=== PATIENT | female | born 1950 | race Caucasian/White ===

== ENCOUNTER → 2016-11-14 | Outpatient (CLI) | payer MEDICARE ==
--- NOTE | 2016-11-14 13:22 | MM ---
Reason for exam: screening (asymptomatic). Last mammogram was performed 1 year and 1 month ago. History: Patient is postmenopausal and is nulliparous. Family history of breast cancer in mother at age 80. Took unspecified hormones for 10 years beginning at age 44. Physical Findings: A clinical breast exam by your physician is recommended on an annual basis and results should be correlated with mammographic findings. MG 3D Screening Mammo W/Cad Bilateral CC and MLO view(s) were taken. Prior study comparison: October 24, 2015, bilateral MG screening mammo w CAD. October 18, 2014, bilateral MG screening mammo w CAD. October 02, 2013, bilateral digital screening mammo w/CAD. The breast tissue is heterogeneously dense. This may lower the sensitivity of mammography. There is no discrete abnormality. ASSESSMENT: Negative, BI-RAD 1 RECOMMENDATION: Routine screening mammogram of both breasts in 1 year.
== END | disposition home or self-care (01) ==
LOC: RADMAMWWP 10:35
PROVIDERS: ATTEND Obstetrics & Gynecology
DX: Z12.31 Encounter for screening mammogram for malignant neoplasm of breast (principal)
CPT/HCPCS: 77063; G0202

== ENCOUNTER → 2017-11-26 | Outpatient (CLI) | payer MEDICARE ==
--- NOTE | 2017-11-27 10:42 | MM ---
Reason for exam: screening (asymptomatic). Last mammogram was performed 1 year ago. History: Patient is postmenopausal and is nulliparous. Family history of breast cancer in mother at age 80. Took unspecified hormones for 10 years beginning at age 44. Physical Findings: A clinical breast exam by your physician is recommended on an annual basis and results should be correlated with mammographic findings. MG 3D Screening Mammo W/Cad Bilateral CC and MLO view(s) were taken. Prior study comparison: November 14, 2016, bilateral MG 3d screening mammo w/cad. October 24, 2015, bilateral MG screening mammo w CAD. The breast tissue is heterogeneously dense. This may lower the sensitivity of mammography. Focal asymmetry left MLO view 2.8cm from nipple. This finding is changed when compared with previous exams. ASSESSMENT: Incomplete: need additional imaging evaluation, BI-RAD 0 RECOMMENDATION: Special view mammogram of the left breast. If lesion persists on supplemental views, image directed ultrasound is recommended. [facility] will attempt to contact patient to return for supplemental views and ultrasound if indicated.
== END | disposition home or self-care (01) ==
LOC: RADMAMWWP 12:20
PROVIDERS: ATTEND Family Medicine
DX: Z12.31 Encounter for screening mammogram for malignant neoplasm of breast (principal)
CPT/HCPCS: 77063; 77067

== ENCOUNTER → 2017-12-04 | Outpatient (CLI) | payer MEDICARE ==
--- NOTE | 2017-12-04 12:06 | MM ---
Reason for exam: additional evaluation requested from abnormal screening. Last mammogram was performed less than 1 month ago. History: Patient is postmenopausal and is nulliparous. Family history of breast cancer in mother at age 80. Took unspecified hormones for 10 years beginning at age 44. Physical Findings: Nurse did not find any significant physical abnormalities on exam. MG Work Up Mamm w CAD LT LM and spot compression MLO view(s) were taken of the left breast. Prior study comparison: November 26, 2017, bilateral MG 3d screening mammo w/cad. November 14, 2016, bilateral MG 3d screening mammo w/cad. The breast tissue is heterogeneously dense. This may lower the sensitivity of mammography. Inferior left asymmetry persist on spot compression MLO with possible correlate inferiorly. However it does appear similar to priors. These results were verbally communicated with the patient and result sheet given to the patient on 12/04/17. ASSESSMENT: Incomplete: need additional imaging evaluation, BI-RAD 0 RECOMMENDATION: Ultrasound of the left breast. (lower inner quadrant, if nothing seen, lower outer quadrant)
--- NOTE | 2017-12-04 12:08 | USB ---
Reason for exam: additional evaluation requested from abnormal screening. History: Patient is postmenopausal and is nulliparous. Family history of breast cancer in mother at age 80. Took unspecified hormones for 10 years beginning at age 44. US Breast Workup Limited LT Left limited breast ultrasound including focal area of concern, retroareolar and axilla demonstrates no cystic or solid lesion seen. No suspicious sonographic finding. These results were verbally communicated with the patient and result sheet given to the patient on 12/04/17. ASSESSMENT: Negative, BI-RAD 1 RECOMMENDATION: Return to routine screening mammogram schedule for both breasts.
== END | disposition home or self-care (01) ==
LOC: RADMAMWWP 09:57
PROVIDERS: ATTEND Family Medicine
DX: R92.8 Other abnormal and inconclusive findings on diagnostic imaging of breast (principal)
CPT/HCPCS: 77065

== ENCOUNTER 2018-02-02 21:15 | Emergency (ER) | payer MEDICARE ==
[2018-02-02 22:02] VITALS: TEMP 99.7
--- NOTE | 2018-02-02 23:02 | ED ---
Fall HPI - General Chief Complaint: Fall Stated Complaint: Fall/Hand Pain Time Seen by Provider: 02/02/18 22:46 Source: patient, RN notes reviewed Mode of arrival: ambulatory Limitations: no limitations - History of Present Illness Initial Comments: This is a 67-year-old female who presents to the emergency department with chief complaint of left wrist injury. Patient states that she was coming down from a 12 foot ladder and missed the last 2 rungs. She states that she fell back and landed onto her left wrist. Patient reports pain to the radial aspect of the wrist. She states that she does have osteoporosis and has broken her foot in the past. Patient states that she does have limited range of motion of the left wrist due to pain. She denies any other injuries or trauma. Denies hitting her head at. Denies head, neck or back pain. Denies recent illnesses or infections. Denies fevers or chills, chest pain or shortness of breath, abdominal pain, nausea or vomiting, numbness or tingling. - Related Data Home Medications Medication Instructions Recorded Confirmed Alendronate Sodium 70 mg PO Q7DAYS 11/30/13 12/02/13 Levothyroxine Sodium [Synthroid] 75 mcg PO DAILY 11/30/13 12/02/13 Multivitamin [Multivitamins] 1 each PO 11/30/13 11/30/13 Oxybutynin Chloride [Ditropan XL] 5 mg PO DAILY 11/30/13 12/02/13 amLODIPine BESYLATE/BENAZEPRIL 1 each PO DAILY 11/30/13 12/02/13 [Amlodipine-Benazepril 10-20 mg] Allergies Allergy/AdvReac Type Severity Reaction Status Date / Time aspirin Allergy Unknown Verified 02/02/18 22:02 Penicillins Allergy Rash/Hives Verified 02/02/18 22:02 sulfamethoxazole Allergy Unknown Verified 02/02/18 22:02 [From Bactrim] trimethoprim [From Bactrim] Allergy Unknown Verified 02/02/18 22:02 Review of Systems ROS Statement: Those systems with pertinent positive or pertinent negative responses have been documented in the HPI. ROS Other: All systems not noted in ROS Statement are negative. Past Medical History Past Medical History: Hypertension, Thyroid Disorder Additional Past Medical History / Comment(s): osteoporosis,hemmoriods, hypothyroid History of Any Multi-Drug Resistant Organisms: None Reported Additional Past Surgical History / Comment(s): colonoscopy Past Anesthesia/Blood Transfusion Reactions: No Reported Reaction Past Psychological History: No Psychological Hx Reported Smoking Status: Never smoker Past Alcohol Use History: None Reported Past Drug Use History: None Reported General Exam - General Exam Comments Initial Comments: General: Awake and alert, well-developed; in no apparent distress. HEENT: Head atraumatic, normocephalic. Pupils are equal, round and reactive to light. Extraocular movements intact. Oropharynx moist without erythema or exudate. Neck: Supple. Normal ROM. Cardiovascular: Regular rate and rhythm. No murmurs, rubs or gallops. Chest symmetrical. Respiratory: Lungs clear to auscultation bilaterally. No wheezes, rales or rhonchi. Normal respiratory effort with no use of accessory muscles. Musculoskeletal: Limited active range of motion of the left wrist due to pain. Passive range of motion is intact. There is generalized soft tissue swelling to the left wrist. Tenderness on palpation of the radial aspect of the wrist. No gross deformities. Sensation is intact. Radial pulses are 2+ equal and palpable bilaterally. Skin: [place], warm and dry without rashes or lesions. Neurological: Alert and oriented x3. CN II-XII grossly intact. Speech is fluent and answers are appropriate. No focal neuro deficits. Psychiatric: Normal mood and affect. No overt signs of depression or anxiety noted. Limitations: no limitations Course Vital Signs 02/02/18 21:56 Temperature 99.7 F H Pulse Rate 87 Respiratory 18 Rate Blood Pressure 153/83 O2 Sat by Pulse 98 Oximetry Procedures - Orthopedic Splinting/Casting Injury #1 Side: left Upper Extremity Injury Location: wrist Upper Extremity Immobilizer: thumb spica, synthetic pre-padded splint Medical Decision Making - Medical Decision Making This is a 67-year-old female who presents to the emergency department with chief complaint of left wrist injury. Patient missed the last couple of rungs on a ladder and landed onto her left wrist. X-rays of the left wrist and hand revealed no acute fractures or dislocations. Patient does have a mild snuffbox tenderness on exam. Tenderness is to the radial aspect of the left wrist. Thumb spica splint is placed and patient tolerated well without complication. She is neurovascularly intact. Patient will be provided with follow-up information to orthopedics. Vital signs are stable and patient is in no acute distress. She will be discharged home at this time. She is in agreement with plan and voices understanding. All questions were answered. - Radiology Data Radiology results: report reviewed X-ray left wrist impression: Negative left wrist exam. X-ray left hand impression: Minimal osteoarthritic changes. No fracture seen. Disposition Clinical Impression: Left wrist injury Disposition: HOME SELF-CARE Condition: Good Instructions: Wrist Sprain (ED) Additional Instructions: Please follow-up with Dr. Kenny, orthopedics within 1-2 days. Please keep splint clean, dry and intact. Please follow up with primary care provider within 1-2 days. Return to emergency department if symptoms should worsen or any concerns arise. Is patient prescribed a controlled substance at d/c from ED?: No Referrals: Juan Kwong DO [Primary Care Provider] - 1-2 days Kyle Kenny MD [STAFF PHYSICIAN] - 1-2 days Time of Disposition: 00:09
--- NOTE | 2018-02-02 23:31 | XR ---
EXAMINATION TYPE: XR hand complete LT DATE OF EXAM: 02/02/2018 COMPARISON: NONE HISTORY: Right hand pain TECHNIQUE: 3 views FINDINGS: I see no fracture nor dislocation. There is mild spurring at the IP joints. There are no er osions. There is no subluxation. IMPRESSION: Minimal osteoarthritic changes. No fracture seen.
--- NOTE | 2018-02-02 23:32 | XR ---
EXAMINATION TYPE: XR wrist complete LT DATE OF EXAM: 02/02/2018 COMPARISON: NONE HISTORY: Wrist pain after falling TECHNIQUE: 4 views FINDINGS: I see no fracture nor dislocation. Joint spaces are fairly normal. Scaphoid is intact. Draper carpals are intact. IMPRESSION: Negative left wrist exam.
[2018-02-03 00:17] VITALS: BP 168/86; PULSE 90; RESP 19
== END 2018-02-03 00:15 | disposition home or self-care (01) ==
LOC: EC 21:15
DX: S69.92XA Unspecified injury of left wrist, hand and finger(s), initial encounter (principal); I10 Essential (primary) hypertension; E03.9 Hypothyroidism, unspecified; Z79.899 Other long term (current) drug therapy; Z88.0 Allergy status to penicillin; Z88.2 Allergy status to sulfonamides; Z88.6 Allergy status to analgesic agent; W11.XXXA Fall on and from ladder, initial encounter; Y92.009 Unspecified place in unspecified non-institutional (private) residence as the place of occurrence of the external cause
CPT/HCPCS: 29125; 99283

== ENCOUNTER → 2018-11-28 | Outpatient (CLI) | payer MEDICARE ==
--- NOTE | 2018-11-28 15:02 | MM ---
Reason for exam: screening (asymptomatic). Last mammogram was performed 1 year ago. History: Patient is postmenopausal and is nulliparous. Family history of breast cancer in mother at age 80. Took unspecified hormones for 10 years beginning at age 44. Physical Findings: A clinical breast exam by your physician is recommended on an annual basis and results should be correlated with mammographic findings. MG 3D Screening Mammo W/Cad Bilateral CC and MLO view(s) were taken. Prior study comparison: December 04, 2017, left breast MG work up mamm w CAD LT. November 26, 2017, bilateral MG 3d screening mammo w/cad. The breast tissue is heterogeneously dense. This may lower the sensitivity of mammography. There is no discrete abnormality. ASSESSMENT: Negative, BI-RAD 1 RECOMMENDATION: Routine screening mammogram of both breasts in 1 year.
== END | disposition home or self-care (01) ==
LOC: RADMAMWWP 11:04
PROVIDERS: ATTEND Family Medicine
DX: Z12.31 Encounter for screening mammogram for malignant neoplasm of breast (principal)
CPT/HCPCS: 77063; 77067

== ENCOUNTER → 2019-01-26 | Outpatient (CLI) | payer MEDICARE ==
--- NOTE | 2019-01-26 13:48 | BD ---
EXAMINATION TYPE: Axial Bone Density DATE OF EXAM: 01/26/2019 COMPARISON: 2011 CLINICAL HISTORY: M [age] Height: 60 inches Weight: 120 pounds FRAX RISK QUESTIONS: Alcohol (3 or more units per day): no Family History (Parent hip fracture): unsure Glucocorticoids (More than 3mos): no (Ex: prednisone, prednisolone, methylprednisolone, dexamethasone, and hydrocortisone). History of Fracture in Adulthood: yes, foot Secondary Osteoporosis: 1. Type 1 Diabetes: no 2. Hyperthyroidism: unsure 3. Menopause before 45: no 4. Malnutrition: no 5. Chronic liver disease: no Rheumatoid Arthritis: no Current Tobacco Use: no RISK FACTORS HISTORY OF: Family History of Osteoporosis: yes, sister Active: yes Diet low in dairy products/other sources of calcium: no Postmenopausal woman: yes Take estrogen and/or progesterone medications: not now How long: "other" age [age] as stated on mammography MRS form Lost more than 2 inches in height since high school: no Frequent falls: no Poor Health: no Hyperparathyroidism: no Adrenal Insufficiency: no MEDICATIONS: Prednisone or other steroids: no Thyroid Medications: yes Which medication: Levothyroxine How Long: over 20 years Osteoporosis Medications: yes Which medication: currently alendronate sodium...previously Actonel How Long: over 10 years Additional Medications: blood pressure med , Vitamin D 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 System. Bone mineral density as measured about the Lumbar spine is: ----- L1-L4(G/cm2): 1.023 T Score Values are as follows: ----- L2: -0.7 ----- L3: -0.5 ----- L4: -2.3 ----- L1-L4: -1.3 Bone mineral density has: Increased 1.4% since study of: 04/21/2012 Bone mineral density about the R hip (g/cm2): 0.784 Bone mineral density about the L hip (g/cm2): 0.816 T Score values are as follows: -----R Neck: -1.8 -----L Neck: -1.6 -----R Total: -1.2 -----L Total: -0.8 Bone mineral density has: Decreased -1.0% since study of: 04/21/2012 IMPRESSION: Osteopenia (T Score between -2.5 and -1). There is slightly increased risk of fracture and the patient may be considered for treatment. Re-Screen 2-5 years. NOTE: T-SCORE=SD OF THE YOUNG ADULT MEAN.
== END | disposition home or self-care (01) ==
LOC: RADBDWWP 10:53
PROVIDERS: ATTEND Family Medicine
DX: M85.80 Other specified disorders of bone density and structure, unspecified site (principal); Z79.83 Long term (current) use of bisphosphonates
CPT/HCPCS: 77080

== ENCOUNTER → 2019-07-17 | Outpatient (CLI) | payer MEDICARE ==
--- NOTE | 2019-07-18 10:53 | XR ---
2 view abdomen HISTORY: Pain and diarrhea, loss of appetite 2 views the abdomen No comparisons Lung bases are clear. There is no evident bowel obstruction or pneumoperitoneum. No pathologic calcif ication is evident, suspect vascular calcifications within the pelvis. Bone mineralization is normal, degenerative disc changes are present in the visualized spine. IMPRESSION: Nonspecific bowel gas pattern
== END | disposition home or self-care (01) ==
LOC: RADXRYALE 15:03
PROVIDERS: ATTEND Family Medicine
DX: R10.817 Generalized abdominal tenderness (principal); R19.7 Diarrhea, unspecified
CPT/HCPCS: 74019

== ENCOUNTER → 2020-01-28 | Outpatient (CLI) | payer MEDICARE ==
--- NOTE | 2020-01-29 09:41 | MM ---
Reason for exam: screening (asymptomatic). Last mammogram was performed 1 year and 2 months ago. History: Patient is postmenopausal and is nulliparous. Family history of breast cancer in mother at age 80. Took unspecified hormones for 10 years beginning at age 44. Physical Findings: A clinical breast exam by your physician is recommended on an annual basis and results should be correlated with mammographic findings. MG 3D Screening Mammo W/Cad Bilateral CC and MLO view(s) were taken. Prior study comparison: November 28, 2018, bilateral MG 3d screening mammo w/cad. December 04, 2017, left breast MG work up mamm w CAD LT. The breast tissue is heterogeneously dense. This may lower the sensitivity of mammography. No significant changes when compared with prior studies. ASSESSMENT: Negative, BI-RAD 1 RECOMMENDATION: Routine screening mammogram of both breasts in 1 year.
== END | disposition home or self-care (01) ==
LOC: RADMAMWWP 14:43
PROVIDERS: ATTEND Family Medicine
DX: Z12.31 Encounter for screening mammogram for malignant neoplasm of breast (principal)
CPT/HCPCS: 77063; 77067

== ENCOUNTER 2020-10-04 09:23 | Day surgery (SDC) | payer MEDICARE ==
[2020-09-29 16:10] VITALS: BMI 23.4
[~2020-10-04 09:23] MED LIST: LACTATED RINGERS 1,000 ML IV SCH; LIDOCAINE 1% (10MG/ML) FOR IV START INTRADERMA PRN
[2020-10-04 10:05] VITALS: TEMP 97.8
[2020-10-04] MEDS ORDERED: LACTATED RINGERS 1,000 ML IV ONE (10:05)
[2020-10-04] MEDS ORDERED: LIDOCAINE 1% (10MG/ML) FOR IV START INTRADERMA ONE (10:18)
[2020-10-04] MEDS ORDERED: LIDOCAINE 1% INJ 10MG/ML (20 ML MDV) ONE (10:40)
[2020-10-04] MEDS ORDERED: PROPOFOL 10 MG/ML 20 ML VIAL IV ONE (10:40)
[2020-10-04] MEDS ORDERED: fentaNYL (PF) 50 MCG/ML 2 ML AMP ONE (10:40)
--- NOTE | 2020-10-04 11:15 | P.PCN ---
Date of Procedure: 10/04/20 Description of Procedure: BRIEF HISTORY: Patient is a 69-year-old female presenting for outpatient colonoscopy for evaluation of other fecal abnormalities, blood per rectum. The patient reports last colonoscopy approximately 10 years ago. No abdominal pain. No family history of colon cancer. PROCEDURE PERFORMED: Colonoscopy. PREOPERATIVE DIAGNOSIS: Other fecal abnormalities, blood per rectum, patient reports last colonoscopy 10 years ago. ESTIMATED BLOOD LOSS: Minimal. IV sedation per Anesthesia. PROCEDURE: After informed consent was obtained, the patient, was brought into the endoscopy unit. IV sedation was administered by Anesthesia under continuous monitoring. Digital rectal examination was normal. Initially the Olympus pediatric flexible video colonoscope was then inserted in the rectum, gradually advanced into the cecum without any difficulty. Careful examination was performed as the scope was gradually being withdrawn. Ileocecal valve and the appendiceal orifice were visualized and appeared normal. Prep was excellent. Mucosa of the cecum, ascending colon, transverse colon, descending colon, sigmoid colon, and rectum appeared normal, except for a few scattered diverticula in the sigmoid colon. Retroflexion was performed in the rectum and no lesions were seen, low-grade internal hemorrhoids noted. The patient tolerated the procedure well. IMPRESSION: Mild sigmoid diverticulosis. Low-grade internal hemorrhoids. RECOMMENDATIONS: Findings of this examination were discussed with the patient and her family. Okay to resume diet. Okay to resume medications. Recommend repeat endoscopy in 10 years for screening purposes, or sooner if signs or symptoms which warrant further evaluation develop.
[2020-10-04 11:40] VITALS: BP 126/80; PULSE 82; RESP 16
== END 2020-10-04 12:01 | disposition home or self-care (01) ==
LOC: ORWHC2ENDO 09:23
PROVIDERS: ATTEND Internal Medicine
DX: K57.30 Diverticulosis of large intestine without perforation or abscess without bleeding (principal); K64.8 Other hemorrhoids; K62.5 Hemorrhage of anus and rectum; Z88.6 Allergy status to analgesic agent; Z88.0 Allergy status to penicillin; Z88.2 Allergy status to sulfonamides; Z79.890 Hormone replacement therapy; Z79.899 Other long term (current) drug therapy; Z90.89 Acquired absence of other organs; Z98.890 Other specified postprocedural states; I10 Essential (primary) hypertension; E07.9 Disorder of thyroid, unspecified
CPT/HCPCS: 45378; J2001; J3010; J2704

== ENCOUNTER → 2021-01-04 | Outpatient (CLI) | payer MEDICARE ==
--- NOTE | 2021-01-04 15:50 | XR ---
EXAMINATION TYPE: XR abdomen 2V DATE OF EXAM: 01/04/2021 COMPARISON: NONE HISTORY: Pain TECHNIQUE: One view abdominal series FINDINGS: The osseous structures are intact. The bowel gas pattern is nonspecific. Soft tissue fullness in the pelvis may represent a urine filled bladder correlate clinically. Arthropathy of the hips with hyper trophic change of the acetabulum. Single calcification the lower pelvis is stable. Atrophic and degen erative change of the spine. Lung bases clear.. IMPRESSION: 1. Nonspecific abdomen. Soft tissue fullness in the pelvis could be related to urine filled bladder. Correlate clinically.
== END | disposition home or self-care (01) ==
LOC: RADXRYALE 14:27
PROVIDERS: ATTEND Physician Assistant Medical
DX: R10.9 Unspecified abdominal pain (principal)
CPT/HCPCS: 74019

== ENCOUNTER → 2021-02-06 | Outpatient (CLI) | payer MEDICARE ==
--- NOTE | 2021-02-08 08:35 | MM ---
Reason for exam: screening (asymptomatic). Last mammogram was performed 1 year ago. History: Patient is postmenopausal and is nulliparous. Family history of breast cancer in mother at age 80. Took unspecified hormones for 10 years beginning at age 44. Physical Findings: A clinical breast exam by your physician is recommended on an annual basis and results should be correlated with mammographic findings. MG 3D Screening Mammo W/Cad Bilateral CC and MLO view(s) were taken. Prior study comparison: January 28, 2020, bilateral MG 3d screening mammo w/cad. November 28, 2018, bilateral MG 3d screening mammo w/cad. No significant changes when compared with prior studies. ASSESSMENT: Benign, BI-RAD 2 RECOMMENDATION: Routine screening mammogram of both breasts in 1 year.
== END | disposition home or self-care (01) ==
LOC: RADMAMWWP 16:12
PROVIDERS: ATTEND Family Medicine
DX: Z12.31 Encounter for screening mammogram for malignant neoplasm of breast (principal); Z78.0 Asymptomatic menopausal state; Z80.3 Family history of malignant neoplasm of breast
CPT/HCPCS: 77063; 77067

== ENCOUNTER → 2021-04-05 | Outpatient (CLI) | payer MEDICARE ==
--- NOTE | 2021-04-05 12:20 | XR ---
EXAMINATION TYPE: XR abdomen 2V DATE OF EXAM: 04/05/2021 COMPARISON: 01/04/2021 HISTORY: Abdominal pain TECHNIQUE: One view abdominal series FINDINGS: The osseous structures are intact. The bowel gas pattern is nonspecific. Lung bases are clear. Hype rtrophic and degenerative change of the spine. Arthropathy of the hips. Calcification the pelvis may be vascular. IMPRESSION: 1. Nonspecific abdomen.
== END | disposition home or self-care (01) ==
LOC: RADXRYALE 12:03
PROVIDERS: ATTEND Physician Assistant Medical
DX: R10.9 Unspecified abdominal pain (principal)
CPT/HCPCS: 74019

== ENCOUNTER → 2021-05-11 | Outpatient (CLI) | payer MEDICARE ==
--- NOTE | 2021-05-11 14:45 | BD ---
EXAMINATION TYPE: Axial Bone Density DATE OF EXAM: 05/11/2021 COMPARISON: Prior DEXA bone scan January 26, 2019 CLINICAL HISTORY: Postmenopausal female. Height: 60 Weight: 111.5 FRAX RISK QUESTIONS: Alcohol (3 or more units per day): no Family History (Parent hip fracture): no Glucocorticoids (More than 3mos): (Ex: prednisone, prednisolone, methylprednisolone, dexamethasone, and hydrocortisone). History of Fracture in Adulthood: yes Secondary Osteoporosis: 1. Type 1 Diabetes: no 2. Hyperthyroidism: no 3. Menopause before 45: no 4. Malnutrition: no 5. Chronic liver disease: no Rheumatoid Arthritis: no Current Tobacco Use: no RISK FACTORS HISTORY OF: Surgery to Spine/Hip(right/left)/Wrist (right/left): no Family History of Osteoporosis: yes Active: yes Diet low in dairy products/other sources of calcium: no Postmenopausal woman: yes Lost more than 2 inches in height since high school: no MEDICATIONS: blood pressure, vit d Additional History: EXAM MEASUREMENTS: Bone mineral densitometry was performed using the [employer] System. Bone mineral density as measured about the Lumbar spine is: ----- L1-L4(G/cm2): 1.039 T Score Values are as follows: ----- L2: -0.6 ----- L3: -0.2 ----- L4: -2.4 ----- L1-L4: -1.2 Bone mineral density has: increased 0.6 % since study of: 01.26.2019 Bone mineral density about the R hip (g/cm2): 0.753 Bone mineral density about the L hip (g/cm2): 0.825 T Score values are as follows: -----R Neck: -2.0 -----L Neck: -1.5 -----R Total: -1.5 -----L Total: -0.7 Bone mineral density has: decreased -1.2 % since study of: 01.27.2019 IMPRESSION: Osteopenia (T Score between -2.5 and -1) remains present. There remains slightly increased risk of fracture and the patient may be considered for treatment. Re-Screen 2-5 years. NOTE: T-SCORE=SD OF THE YOUNG ADULT MEAN.
== END | disposition home or self-care (01) ==
LOC: RADBDWWP 12:43
PROVIDERS: ATTEND Family Medicine
DX: M85.89 Other specified disorders of bone density and structure, multiple sites (principal); Z78.0 Asymptomatic menopausal state
CPT/HCPCS: 77080

== ENCOUNTER → 2022-02-27 | Outpatient (CLI) | payer MEDICARE ==
--- NOTE | 2022-02-28 19:41 | MM ---
Reason for Exam: Screening (asymptomatic). Last mammogram was performed 1 year(s) and 1 month(s) ago. Patient History: Menarche at age 13. Patient has no children. Postmenopausal. Unspecified Hormone for 10 years from age 44 until age 54. Mother had breast cancer, age 80. Risk Values: Sylvia 5 year model risk: 3.4%. NCI Lifetime model risk: 9.3%. Prior Study Comparison: 11/28/2018 Bilateral Screening Mammogram, [facility]. 01/28/2020 Bilateral Screening Mammogram, [facility]. 02/06/2021 Bilateral Screening Mammogram, [facility]. Tissue Density: The breast tissue is heterogeneously dense. This may lower the sensitivity of mammography. Findings: Analyzed By CAD. 2:00 centrally located focal asymmetry right breast at a middle to posterior depth is more defined and incompletely disperses on 3-D images. Otherwise, no significant change. Overall Assessment: Incomplete: need additional imaging evaluation, BI-RAD 0 Management: Special View Mammogram of the right breast. To include spot 3-D CC, spot 3-D MLO, and 3-D LM views. Targeted right breast ultrasound if any persisting abnormality. Electronically signed and approved by: Andrade Day M.D. Radiologist
== END | disposition home or self-care (01) ==
LOC: RADMAMWWP 09:07
PROVIDERS: ATTEND Family Medicine
DX: Z12.31 Encounter for screening mammogram for malignant neoplasm of breast (principal); Z78.0 Asymptomatic menopausal state; Z80.3 Family history of malignant neoplasm of breast
CPT/HCPCS: 77063; 77067

== ENCOUNTER → 2023-03-29 | Outpatient (CLI) | payer MEDICARE ==
--- NOTE | 2023-04-02 22:51 | MM ---
Reason for Exam: Screening (asymptomatic). Last mammogram was performed 1 year(s) and 1 month(s) ago. Patient History: Menarche at age 13. Patient has no children. Postmenopausal. Unspecified Hormone for 10 years from age 44 until age 54. Mother had breast cancer, age 80. Risk Values: Sylvia 5 year model risk: 3.5%. NCI Lifetime model risk: 8.8%. Prior Study Comparison: 02/06/2021 Bilateral Screening Mammogram, [facility]. 02/27/2022 Bilateral MG 3D screening mammo w/cad, [facility]. 03/16/2022 Right MG 3D work up w/cad RT, [facility]. Tissue Density: The breast tissue is heterogeneously dense. This may lower the sensitivity of mammography. Findings: Analyzed By CAD. Unchanged areas of asymmetric density on the left. There is no suspicious group of microcalcifications or new suspicious mass in either breast. Overall Assessment: Benign, BI-RAD 2 Management: Screening Mammogram of both breasts in 1 year. See note below in regards to patient's increased 5 year Sylvia score. Patient should continue monthly self-breast exams. A clinical breast exam by your physician is recommended on an annual basis. This exam should not preclude additional follow-up of suspicious palpable abnormalities. Note on Sylvia scores and lifetime risk: 1. A Sylvia score greater than 3% is considered moderate risk. If this is the case, consider specialist referral to assess eligibility for a risk reducing agent. 2. If overall lifetime risk for the development of breast cancer is 20% or higher, the patient may qualify for future screening with alternating mammogram and breast MRI. Electronically signed and approved by: Andrade Day M.D. Radiologist
== END | disposition home or self-care (01) ==
LOC: RADMAMWWP 11:46
PROVIDERS: ATTEND Family Medicine
DX: Z12.31 Encounter for screening mammogram for malignant neoplasm of breast (principal); Z78.0 Asymptomatic menopausal state; Z80.3 Family history of malignant neoplasm of breast
CPT/HCPCS: 77063; 77067

== ENCOUNTER → 2023-09-04 | Outpatient (CLI) | payer MEDICARE ==
--- NOTE | 2023-09-04 14:52 | BD ---
EXAMINATION TYPE: Axial Bone Density DATE OF EXAM: 09/04/2023 CLINICAL HISTORY: 72 years old Female. 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 80 Height: 59.2 in Weight: 114 lbs FRAX RISK QUESTIONS: History of Fracture in Adulthood: rt foot fx age 62 RISK FACTORS HISTORY OF: MEDICATIONS: Thyroid Medications: yes Which medication: Levothyroxine How Lon+ years Osteoporosis Medications: yes Which medication: alendronate sodium How Lon+ years EXAM MEASUREMENTS: Bone mineral densitometry was performed using the Quantum System. Bone mineral density as measured about the Lumbar spine is: ----- L1-L4(G/cm2): 1.036 T Score Values are as follows: ----- L1: -1.7 ----- L2: -0.9 ----- L3: -0.5 ----- L4: -1.8 ----- L1-L4: -1.2 Z Score Values are as follows: ----- L1: 0.5 ----- L2: 1.3 ----- L3: 1.6 ----- L4: 0.3 ----- L1-L4: 1.0 Bone mineral density has: Decreased -0.3% since study of: Bone mineral density about the R hip (g/cm2): 0.824 Bone mineral density about the L hip (g/cm2): 0.876 T Score values are as follows: -----R Neck: -2.0 -----L Neck: -1.8 -----R Total: -1.5 -----L Total: -1.0 Z Score values are as follows: -----R Neck: 0.1 -----L Neck: 0.3 -----R Total: 0.5 -----L Total: 0.9 Bone mineral density has: Decreased -2.4% since study of: 05/11/2021 FRAX%s: The graph provided illustrates a 18.4% chance for a major osteoporotic fx and a 4.0% chance f or the hips probability for fx in 10 years time. IMPRESSION: Osteopenia (T Score between -2.5 and -1). There is slightly increased risk of fracture and the patient may be considered for treatment. Re-Screen 2-5 years. NOTE: T-SCORE=SD OF THE YOUNG ADULT MEAN.
== END | disposition home or self-care (01) ==
LOC: RADBDWWP 10:44
PROVIDERS: ATTEND Family Medicine
DX: M85.89 Other specified disorders of bone density and structure, multiple sites (principal); Z79.83 Long term (current) use of bisphosphonates
CPT/HCPCS: 77080

== ENCOUNTER → 2024-03-11 | Outpatient (CLI) | payer MEDICARE ==
--- NOTE | 2024-04-10 11:57 | XR ---
Site ID synapse default Patient Katherine Love ID [id number] Age/Gender: 73Y, F Order # N/A Procedure KNEE 3 VIEWS LEFT Date 03/11/2024 11:04:00 AM EXAMINATION TYPE: XR knee complete LT DATE OF EXAM: 03/25/2024 1:39 PM INDICATION: Patient age: Female; 73 year old; Reason for study: Left knee pain COMPARISON: None. TECHNIQUE: The Left knee(s) was examined in Frontal, lateral and oblique projections. FINDINGS: No evidence of any acute osseous pathology, soft tissue swelling, or joint effusion is no pamela. IMPRESSION: No acute osseous pathology.
== END | disposition home or self-care (01) ==
LOC: RADXRYALE 10:50
PROVIDERS: ATTEND Physician Assistant Medical
DX: M25.562 Pain in left knee (principal)

== ENCOUNTER → 2024-04-15 | Outpatient (CLI) | payer MEDICARE ==
--- NOTE | 2024-04-19 15:03 | MM ---
Reason for Exam: Screening (asymptomatic). Last screening mammogram was performed 12 month(s) ago. Patient History: Menarche at age 13. Patient has no children. Postmenopausal. Unspecified Hormone for 10 years from age 44 until age 54. Mother had breast cancer, age 80. Risk Values: Sylvia 5 year model risk: 3.5%. NCI Lifetime model risk: 8.4%. Prior Study Comparison: 02/27/2022 Bilateral MG 3D screening mammo w/cad, [facility]. 03/16/2022 Right MG 3D work up w/cad RT, [facility]. 03/29/2023 Bilateral MG 3D screening mammo w/cad, [facility]. Tissue Density: The breasts are heterogeneously dense, which may obscure small masses. Findings: Analyzed By CAD. The pattern is symmetrical. No significant interval change is evident. No suspicious groups of microcalcifications, spiculated or lobular masses, architectural distortion or other secondary signs of malignancy are mammographically apparent. Overall Assessment: Benign, BI-RAD 2 Management: Screening Mammogram of both breasts in 1 year. A negative mammogram report should not preclude additional follow up of suspicious palpable abnormalities. Patient should continue monthly self breast exam. A clinical breast exam by your physician is recommended on an annual basis and results should be correlated with mammographic findings. Note on Sylvia scores and lifetime risk: 1. A Sylvia score greater than 3% is considered moderate risk. If this is the case, consider specialist referral to assess eligibility for a risk reducing agent. 2. If overall lifetime risk for the development of breast cancer is 20% or higher, the patient may qualify for future screening with alternating mammogram and breast MRI. [facility], , 04/19/2024 3:00 PM. Electronically signed and approved by: Alfred Burgos D.O. Radiologis
== END | disposition home or self-care (01) ==
LOC: RADMAMWWP 10:57
PROVIDERS: ATTEND Family Medicine
CPT/HCPCS: 77063; 77067